=== PATIENT | male | born 2000 | race Caucasian/White ===

== ENCOUNTER 2022-08-16 13:43 | Emergency (ER) | payer OTHER ==
[~2022-08-16] VITALS: Ht 172.7 cm; Wt 95.7 kg
[2022-08-16 14:03] VITALS: BP 129/92
[2022-08-16] MEDS ORDERED: ALUMINUM HYD/MAG/SIMETHICONE 30 ML, DICYCLOMINE HCL LIQUID 20 MG, LIDOCAINE VISCOUS 2% ... PO ONE ×3 (14:25)
[2022-08-16] MEDS ORDERED: ALUMINUM HYD/MAG/SIMETHICONE 30 ML UDC ONE (14:30)
[2022-08-16] MEDS ORDERED: DICYCLOMINE HCL LIQUID 10 MG/5 ML UDC ONE (14:30)
--- NOTE | 2022-08-16 14:33 | NUR ---
XRAY AT BEDSIDE
[2022-08-16] MEDS ORDERED: IBUP-2213 PO (15:26)
[2022-08-16] MEDS ORDERED: SUCR1TAB35 PO (15:26)
[2022-08-16] MEDS ORDERED: FAMO-90 PO (15:26)
[2022-08-16 15:33] VITALS: BP 129/92
== END 2022-08-16 15:33 | disposition home or self-care (01) ==
LOC: MED 13:43
DX: R07.89 Other chest pain (principal); K21.9 Gastro-esophageal reflux disease without esophagitis
CPT/HCPCS: 71045; 93005; 99284; Q0092

== ENCOUNTER 2022-09-28 16:40 | Emergency (ER) | payer OTHER ==
[~2022-09-28] VITALS: Ht 175.3 cm; Wt 83.9 kg
[~2022-09-28 16:40] MED LIST: FAMO-90 PO; IBUP-2213 PO; SUCR1TAB35 PO
[2022-09-28 16:46] VITALS: BP 132/80
--- NOTE | 2022-09-28 18:20 | NUR ---
Patient discharged with v/s stable. Written and verbal after care instructions given and explained. Patient verbalized understanding. Ambulatory with steady gait. All questions addressed prior to discharge. Advised to follow up with PMD.
== END 2022-09-28 18:20 | disposition home or self-care (01) ==
LOC: MED 16:40
DX: R51.9 Headache, unspecified (principal); H54.7 Unspecified visual loss; K21.9 Gastro-esophageal reflux disease without esophagitis; Z79.899 Other long term (current) drug therapy; Z79.1 Long term (current) use of non-steroidal anti-inflammatories (NSAID)
CPT/HCPCS: 99282

== ENCOUNTER 2022-10-01 06:49 | Emergency (ER) | payer OTHER ==
[~2022-10-01] VITALS: Ht 172.7 cm; Wt 94.8 kg
[2022-10-01 06:54] VITALS: BP 145/79
--- NOTE | 2022-10-01 07:15 | NUR ---
pt examined by , will be dc home
--- NOTE | 2022-10-01 07:34 | NUR ---
pt dc'd home, a/o times 4, nad, patient discharged with v/s stable. Written and verbal after care instructions given and explained. Patient verbalized understanding. Ambulatory with steady gait. All questions addressed prior to discharge. Advised to follow up with PMD.
[2022-10-01 07:36] VITALS: BP 131/91
== END 2022-10-01 07:36 | disposition home or self-care (01) ==
LOC: MED 06:49
DX: R00.2 Palpitations (principal); R51.9 Headache, unspecified; K21.9 Gastro-esophageal reflux disease without esophagitis; Z79.899 Other long term (current) drug therapy
CPT/HCPCS: 93005; 99283

== ENCOUNTER 2022-10-04 06:35 | Emergency (ER) | payer OTHER ==
[~2022-10-04] VITALS: Ht 172.7 cm; Wt 92.1 kg
[2022-10-04 06:40] VITALS: BP 132/78
--- NOTE | 2022-10-04 06:46 | NUR ---
Patient taken to bed 9.
--- NOTE | 2022-10-04 07:05 | NUR ---
Dr. Alvarado examining patient.
--- NOTE | 2022-10-04 07:12 | NUR ---
Pt report given to Wilman RODIRGUEZ and No RODRIGUEZ. Transfer of care at this time.
[2022-10-04 07:31] LABS: BASOPHILS # (AUTO) 0.1 K/uL (0.00-0.22); BASOPHILS % (AUTO) 0.7 % (0.0-2.0); EOSINOPHILS # (AUTO) 0.1 K/uL (0-0.4); EOSINOPHILS % (AUTO) 0.9 % (0.0-4.0); HEMATOCRIT 47.8 % (36-52); HEMOGLOBIN 16.3 g/dL (12.0-18.0); LYMPHOCYTES # (AUTO) 3.9 K/uL (2.0-11.5); LYMPHOCYTES % (AUTO) 30.2 % (20.5-51.1); MEAN CORPUSCULAR HEMOGLOBIN 30 pg (27-31); MEAN CORPUSCULAR HGB CONC 34 g/dL (33-37); MEAN CORPUSCULAR VOLUME 86.8 fL (80-94); MONOCYTES # (AUTO) 0.8 K/uL (0.8-1.0); MONOCYTES % (AUTO) 6.3 % (1.7-9.3); NEUTROPHILS % (AUTO) 61.9 % (42.2-75.2); PLATELET COUNT (AUTO) 323 K/uL (140-450); RED BLOOD CELL COUNT(AUTO) 5.51 MIL/uL (4.20-6.10); WHITE BLOOD COUNT (AUTO) 12.8 K/uL (4.5-11.0)
[2022-10-04 08:20] LABS: BARBITURATE, URINE NEGATIVE ng/ml (NEG <=200); BENZODIAZEPINE, URINE NEGATIVE ng/mL (NEG <=200); CANNABINOID, URINE POSITIVE ng/mL (NEG <=50); COCAINE, URINE NEGATIVE ng/mL (NEG <=300); OPIATE, URINE NEGATIVE ng/mL (NEG <=2000); PHENCYCLIDINE SCREEN,URINE NEGATIVE ng/mL (NEG <=25)
[2022-10-04 08:24] LABS: ALBUMIN 4.6 g/dL (3.4-5.0); ANION GAP 17.9 (8-16); ASPARTATE AMINOTRANSFERASE 16 U/L (15-37); CARBON DIOXIDE 24.8 mmol/L (21-32); CHLORIDE 98 mmol/L (98-107); CREATININE 0.8 mg/dL (0.6-1.3); GFR ARICAN-AMERICAN 160 mL/min (>90); GLUCOSE 79 mg/dL (74-106); POTASSIUM 3.7 mmol/L (3.5-5.1); SODIUM SERUM 137 mmol/L (136-145); THYROID STIMULATING HORMONE 3.15 uIU/mL (0.34-3.74); TOTAL BILIRUBIN 0.8 mg/dL (0.0-1.0); UREA NITROGEN, BLOOD 12 mg/dL (7-18)
[2022-10-04 10:05] VITALS: BP 129/82
[2022-10-05] MEDS ORDERED: IBUP-2213 PO (17:09)
== END 2022-10-04 10:05 | disposition home or self-care (01) ==
LOC: MED 06:35
DX: R00.2 Palpitations (principal); F41.9 Anxiety disorder, unspecified; F12.90 Cannabis use, unspecified, uncomplicated; K21.9 Gastro-esophageal reflux disease without esophagitis; Z79.899 Other long term (current) drug therapy
CPT/HCPCS: 36415; 80053; 80305; 84443; 84484; 85025; 93005; 99284

== ENCOUNTER 2022-10-05 16:05 | Emergency (ER) | payer OTHER ==
[~2022-10-05] VITALS: Ht 170.2 cm; Wt 90.7 kg
[2022-10-05 16:19] VITALS: BP 130/92
[2022-10-05] MEDS ORDERED: KETOROLAC 15 MG/ML VIAL IM ONE (16:35)
[2022-10-05] MEDS ORDERED: ACETAMINOPHEN 325 MG TAB PO ONE (16:35)
[2022-10-05] MEDS ORDERED: ONDANSETRON 4 MG ODT PO ONE (16:35)
[2022-10-05] MEDS ORDERED: IBUP-2213 PO (17:09)
[2022-10-05] MEDS ORDERED: ONDANSETRON 4 MG ODT ONE (17:39)
[2022-10-05] MEDS ORDERED: KETOROLAC 15 MG/ML VIAL ONE (17:39)
[2022-10-05] MEDS ORDERED: ACETAMINOPHEN 325 MG TAB ONE (17:40)
--- NOTE | 2022-10-05 18:12 | NUR ---
Patient discharged with v/s stable. Written and verbal after care instructions ABOUT GENERAL HEADACHE WITHOUT CAUSEgiven and explained. Patient alert, oriented and verbalized understanding of instructions. Ambulatory with steady gait. All questions addressed prior to discharge. ID band removed. Patient advised to follow up with PMD. Rx of IBUPROFEN given. Patient educated on indication of medication including possible reaction and side effects. Opportunity to ask questions provided and answered.
== END 2022-10-05 19:41 | disposition home or self-care (01) ==
LOC: MED 16:05
DX: R51.9 Headache, unspecified (principal); F12.90 Cannabis use, unspecified, uncomplicated; K21.9 Gastro-esophageal reflux disease without esophagitis; Z71.6 Tobacco abuse counseling; Z79.899 Other long term (current) drug therapy; Z79.1 Long term (current) use of non-steroidal anti-inflammatories (NSAID)
CPT/HCPCS: 96372; 99283; J1885; Q0162